=== PATIENT | female | born 1965 | race Caucasian/White ===

== ENCOUNTER → 2018-02-04 06:54 | Outpatient (CLI) | payer OTHER, SELFPAY ==
--- NOTE | 2018-02-04 07:24 | MRI_ITS ---
STUDY: MRI BRAIN WITH AND WITHOUT CONTRAST REASON FOR EXAM: Female, 52 years old. Ataxia and vertigo with hearing loss TECHNIQUE: Standardized multiplanar fat and water weighted pulse sequences were obtained. 7 ml of Gadavist contrast material was administered intravenously for the contrast portion of the examination. COMPARISON: None. FINDINGS: Normal size of the ventricles and extra-axial spaces for the patient's age. Minor periventricular white matter ischemic changes without mass effect or restricted diffusion.. Chronic ischemic changes within the jolynn. Normal bilateral basal ganglia. Normal thalami. There is no extra-axial fluid accumulation. Normal flow voids within the major intracranial circulation suggesting patency by spin echo criteria. Normal venous enhancement. There is no enhancing intra-axial or extra-axial abnormality. Normal sella turcica, pituitary gland, infundibular stalk, optic chiasm and hypothalamus. Normal tectal plate and pineal gland. Normal midbrain, and medulla. Normal cerebellum. Normal basal cisterns. Normal bilateral temporal bones. Normal bilateral internal auditory canals. Fluid signal within left mastoid air cells which may be due to inflammatory disease No demonstrated orbital abnormality, within the constraints of a routine brain study. Mild mucosal thickening in the right maxillary sinus. Normal calvarium and skull base. Normal visualized soft tissue structures. Normal visualized upper cervical spine. MRI/Brain W/WO Contrast IMPRESSION: Minor periventricular white matter ischemic changes and chronic ischemic changes within the jolynn but no evidence for acute infarct. No evidence for acoustic or vestibular schwannoma. Fluid signal within the left mastoids which may be consistent with mastoiditis. CT of the temporal bones may be helpful for further assessment if indicated Electronically Signed: Yasir Washington MD at 18:54 EDT , Service support ,
== END ==
PROVIDERS: Visit Provider Otolaryngology Otolaryngology/Facial Plastic Surgery
DX: R27.0 Ataxia, unspecified (principal)
CPT/HCPCS: 70553; A9585